=== PATIENT | female | born 1960 | race Caucasian/White ===

== ENCOUNTER 2024-08-27 06:22 | Day surgery (SDC) | payer OTHER, SELFPAY ==
[2024-08-27] VITALS (9 sets, daily range): BP systolic 117–180; BP diastolic 62–89; BMI 22.4
[2024-08-27 12:33] LABS: Glucose - Point of Care 132 mg/dl (70-99)
[2024-08-27] MEDS: TYLENOL 1000 MG PO (12:45)
[2024-08-27 14:45] LABS: Glucose - Point of Care 82 mg/dl (70-99)
[2024-08-27 16:48] LABS: Glucose - Point of Care 48 mg/dl (70-99)
[2024-08-27 17:03] LABS: Glucose - Point of Care 103 mg/dl (70-99)
== END 2024-08-27 18:24 | disposition home or self-care (01) ==
LOC: SDS 06:22
PROVIDERS: ATTENDING PHYSICIAN Student in an Organized Health Care Education/Training Program; FAMILY PHYSICIAN Internal Medicine
DX: E11.69 Type 2 diabetes mellitus with other specified complication (principal); M86.671 Other chronic osteomyelitis, right ankle and foot; E11.610 Type 2 diabetes mellitus with diabetic neuropathic arthropathy; E11.621 Type 2 diabetes mellitus with foot ulcer; L97.519 Non-pressure chronic ulcer of other part of right foot with unspecified severity
CPT/HCPCS: 28005; 88304; 88311; 73630; 76000; 82962; 87070; 87075; 87077; 87147; 87176; 87184; 87186; 87205